=== PATIENT | female | born 2000 | race Asian ===

== ENCOUNTER 2019-02-19 20:24 | Emergency (ER) | payer BC ==
--- NOTE | 2019-02-19 21:56 | ED ---
Lower Extremity - HPI Summary HPI Summary: 18-year-old female presents with right foot injury today. States [place] and felt pain in her right foot. Denies any heel pain. States she's been walking in heels due to it hurting in her toes. She denies any back pain. No other injury. No ankle pain. Has no medical conditions. States is gradually getting worse. She is not able to walk on the area any more. - History of Current Complaint Chief Complaint: EDFall Stated Complaint: FALL PER PT Time Seen by Provider: 02/19/19 21:15 Pain Intensity: 8 - Allergies/Home Medications Home Medications: Home Medications NK [No Home Medications Reported] 02/19/19 [History Confirmed 02/19/19] PMH/Surg Hx/FS Hx/Imm Hx Endocrine/Hematology History: Denies: Hx Anticoagulant Therapy Respiratory History: Denies: Hx Asthma - Immunization History Immunizations Up to Date: Yes Infectious Disease History: No Infectious Disease History: Denies: Traveled Outside the [place] in Last 30 Days - Family History Known Family History: Positive: Non-Contributory - Social History Alcohol Use: None Substance Use Type: Reports: None Smoking Status (MU): Never Smoked Tobacco Review of Systems Negative: Fever Negative: Chest Pain Negative: Shortness Of Breath Positive: Myalgia - right foot pain All Other Systems Reviewed And Are Negative: Yes Physical Exam Triage Information Reviewed: Yes Vital Signs On Initial Exam: Initial Vitals Temp Pulse Resp BP Pulse Ox 98.1 F 99 16 115/80 98 02/19/19 20:33 02/19/19 20:33 02/19/19 20:33 02/19/19 20:33 02/19/19 20:33 Vital Signs Reviewed: Yes Appearance: Positive: Well-Appearing Skin: Positive: Warm, Dry Head/Face: Positive: Normal Head/Face Inspection Eyes: Positive: Normal, Conjunctiva Clear ENT: Positive: Pharynx normal Respiratory/Lung Sounds: Positive: Clear to Auscultation, Breath Sounds Present Cardiovascular: Positive: Normal, RRR Musculoskeletal: Positive: Strength/ROM Intact - right ankle, Other - tenderness 5th metatarsal right, capillary refill<2 secs, mild edema noted to right foot Neurological: Positive: Normal Psychiatric: Positive: Normal Diagnostics - Vital Signs Vital Signs Temp Pulse Resp BP Pulse Ox 02/19/19 20:33 98.1 F 99 16 115/80 98 - Laboratory Lab Statement: Any lab studies that have been ordered have been reviewed, and results considered in the medical decision making process. - Radiology foot Radiology Interpretation Completed By: ED Physician Summary of Radiographic Findings: no fracture Lower Extremity Course/Dx - Course Course Of Treatment: 18-year-old female presents with right foot injury today. States she [place] and felt pain in her right foot. Denies any heel pain. States she's been walking in heels due to it hurting in her toes. She denies any back pain. No other injury. No ankle pain. Has no medical conditions. States is gradually getting worse. She is not able to walk on the area any more. On exam tenderness over fifth metatarsal. Neurovascularly intact. X-ray preliminarily read as no fracture. patient refused crutches. Told to ice and elevate. Patient understands and agrees with plan. - Diagnoses Differential Diagnosis/HQI/PQRI: Positive: Fracture (Closed), Sprain, Strain Provider Diagnoses: Right foot pain Discharge ED - Sign-Out/Discharge Documenting (check all that apply): Patient Departure Patient Received Moderate/Deep Sedation with Procedure: No - Discharge Plan Condition: Good Disposition: HOME Patient Education Materials: Foot Contusion (ED) Referrals: No Primary Care Phys,NOPCP [Primary Care Provider] - Additional Instructions: Take Tylenol or ibuprofen every 6 hours as needed for pain Apply ice, rest, elevate Follow up with [facility] if no improvement Return to ED if develop any new or worsening symptoms - Billing Disposition and Condition Condition: GOOD Disposition: Home - Attestation Statements Provider Attestation: I was available for consultation for this patient. I did not evaluate the patient or participate in any medical decision making or disposition decisions unless I am specifically named in the chart as having consulted on the patient. If I have consulted on the patient, please see my own ED note on the patient encounter. Lyndsay Jama MD
[2019-02-19 22:26] VITALS: BP 116/67
== END 2019-02-19 22:24 | disposition home or self-care (01) ==
LOC: ED 20:24
DX: M79.671 Pain in right foot (principal)
CPT/HCPCS: 99282